=== PATIENT | female | born 1970 | race Caucasian/White ===

== ENCOUNTER 2019-05-02 09:35 | Outpatient (REF) | payer MEDICARE, BC, SELFPAY ==
[2019-05-02 22:46] LABS: ALT 15 U/L (14-59); AST 9 U/L (15-37); Albumin 3.6 g/dL (3.4-5.0); Alkaline Phosphatase 49 U/L (46-116); Anion Gap 7.9 mmol/L (3-11); BUN 17 mg/dL (7-18); Bilirubin, Total 0.6 mg/dL (0.2-1.0); CO2 29.1 mmol/L (21.0-32.0); CREATININE 0.88 mg/dL (0.55-1.02); Calcium 8.6 mg/dL (8.5-10.1); Calculated LDL 90 mg/dL; Chloride 104 mmol/L (98-107); Cholesterol 165 mg/dL (50-200); Glucose 85 mg/dL (70-100); HDL Cholesterol 52 mg/dL (40-60); Potassium 3.7 mmol/L (3.5-5.1); Sodium 141 mmol/L (136-145); TSH 3.65 uIU/mL (0.36-3.74); Triglyceride 118 mg/dL (30-150)
[2019-05-02 22:52] LABS: Vitamin D 25 Total 44.8 ng/ml (30-100)
== END 2019-05-02 09:55 ==
LOC: NCHCN 09:35
PROVIDERS: Visit Provider Physician Assistant Medical
DX: E55.9 Vitamin D deficiency, unspecified (principal); E78.5 Hyperlipidemia, unspecified; R53.83 Other fatigue; E03.9 Hypothyroidism, unspecified
CPT/HCPCS: 80053; 80061; 82306; 84443

== ENCOUNTER 2020-06-06 14:21 | Outpatient (REF) | payer MEDICARE, BC, SELFPAY ==
[2020-06-06 20:50] LABS: Abs Immature Grans 0.03 10^3/uL (0.0-0.06); Absolute Basophil Count 0.05 10^3/uL (0.0-0.2); Absolute Eosinophil Count 0.36 10^3/uL (0.0-0.7); Absolute Lymphocyte Count 2.57 10^3/uL (1.2-3.4); Absolute Neutrophil Count 5.11 10^3/uL (1.2-6.7); Basophils % 0.6; Eosinophils % 4.1; HCT 40.4 % (36.0-46.0); HGB 13.3 g/dL (11.2-15.7); Immature Grans % 0.3; Lymphocytes % 29.5; MCHC 32.9 % (32.0-36.0); MCV 97.3 fL (80-95); MPV 10.4 fL (8.0-11.0); Monocytes % 6.9; Neutrophils % 58.6; Nucleated RBC 0 %; Platelet Count 287 10^3/uL (130-400); RBC 4.15 10^6/uL (3.93-5.22); RDW 12.2 % (11.7-14.6); RDW-SD 43.8 fL; WBC 8.72 10^3/uL (4.4-10.8)
[2020-06-06 21:16] LABS: ALT 19 U/L (14-59); AST 15 U/L (15-37); Albumin 3.9 g/dL (3.4-5.0); Alkaline Phosphatase 44 U/L (46-116); Anion Gap 5.8 mmol/L (3-11); BUN 11 mg/dL (7-18); Bilirubin, Total 0.6 mg/dL (0.2-1.0); CO2 28.2 mmol/L (21.0-32.0); CREATININE 0.82 mg/dL (0.55-1.02); Calcium 8.7 mg/dL (8.5-10.1); Calculated LDL 126 mg/dL (<100); Chloride 104 mmol/L (98-107); Cholesterol 208 mg/dL (<200); Glucose 91 mg/dL (74-106); HDL Cholesterol 67 mg/dL (40-60); Potassium 4.4 mmol/L (3.5-5.1); Sodium 138 mmol/L (136-145); TSH 1.98 uIU/mL (0.36-3.74); Total Protein 7.6 g/dL (6.4-8.2); Triglyceride 79 mg/dL (<150)
[2020-06-06 22:32] LABS: Hemoglobin A1C 4.8 % (<5.7)
== END 2020-06-06 14:41 ==
LOC: NCHCN 14:21
PROVIDERS: PCP Physician Assistant Medical; Visit Provider Physician Assistant Medical
DX: E78.5 Hyperlipidemia, unspecified (principal); E03.9 Hypothyroidism, unspecified; R73.03 Prediabetes; R23.8 Other skin changes
CPT/HCPCS: 80053; 80061; 83036; 84443; 85025

== ENCOUNTER 2021-03-29 09:21 | Outpatient (REF) | payer OTHER, MEDICARE, SELFPAY ==
[2021-03-29 15:13] LABS: ALT 14 U/L (14-59); AST 11 U/L (15-37); Albumin 3.5 g/dL (3.4-5.0); Alkaline Phosphatase 46 U/L (46-116); Anion Gap 2.8 mmol/L (3-11); BUN 15 mg/dL (7-18); Bilirubin, Total 0.4 mg/dL (0.2-1.0); CO2 26.2 mmol/L (21.0-32.0); CREATININE 0.8 mg/dL (0.55-1.02); Calcium 8.4 mg/dL (8.5-10.1); Calculated LDL 115 mg/dL (<100); Chloride 107 mmol/L (98-107); Cholesterol 182 mg/dL (<200); Glucose 90 mg/dL (74-106); HDL Cholesterol 51 mg/dL (40-60); Potassium 4.4 mmol/L (3.5-5.1); Sodium 136 mmol/L (136-145); Total Protein 6.9 g/dL (6.4-8.2); Triglyceride 82 mg/dL (<150)
[2021-03-29 15:15] LABS: Hemoglobin A1C 5.4 % (<5.7)
[2021-03-29 16:53] LABS: TSH (W/Ref FT4) 1.65 uIU/mL (0.36-3.74)
== END 2021-03-29 09:22 | disposition home or self-care (01) ==
LOC: NCHCN 09:21
PROVIDERS: PCP Physician Assistant Medical; Visit Provider Physician Assistant Medical
DX: E03.9 Hypothyroidism, unspecified (principal); E78.5 Hyperlipidemia, unspecified; R79.89 Other specified abnormal findings of blood chemistry
CPT/HCPCS: 80053; 80061; 83036; 84443

== ENCOUNTER 2022-05-30 15:43 | Outpatient (REF) | payer OTHER, MEDICARE, SELFPAY ==
[2022-05-30 16:40] LABS: HCT 37.4 % (36.0-46.0); HGB 12.8 g/dL (11.2-15.7); MCH 33.1 pg (27.0-33.0); MCHC 34.2 % (32.0-36.0); MCV 97 fL (80-95); MPV 10.6 fL (8.0-11.0); Platelet Count 259 10^3/uL (130-400); RBC 3.87 10^6/uL (3.93-5.22); RDW 12.5 % (11.7-14.6); RDW-SD 43.3 fL; WBC 6.21 10^3/uL (4.4-10.8)
[2022-05-30 17:16] LABS: ALT 16 U/L (14-59); AST 7 U/L (15-37); Albumin 3.6 g/dL (3.4-5.0); Alkaline Phosphatase 46 U/L (46-116); Anion Gap 5.9 mmol/L (3-11); BUN 12 mg/dL (7-18); Bilirubin, Total 0.5 mg/dL (0.2-1.0); CO2 27.1 mmol/L (21.0-32.0); CREATININE 0.9 mg/dL (0.55-1.02); Calcium 8.4 mg/dL (8.5-10.1); Calculated LDL 128 mg/dL (<100); Chloride 107 mmol/L (98-107); Cholesterol 201 mg/dL (<200); Glucose 90 mg/dL (74-106); HDL Cholesterol 57 mg/dL (40-60); Potassium 3.9 mmol/L (3.5-5.1); Sodium 140 mmol/L (136-145); TSH 3.29 uIU/mL (0.36-3.74); Total Protein 7.4 g/dL (6.4-8.2); Triglyceride 83 mg/dL (<150)
== END 2022-05-30 15:44 | disposition home or self-care (01) ==
LOC: NCHCN 15:43
PROVIDERS: PCP Physician Assistant Medical; Visit Provider Physician Assistant Medical
DX: E03.9 Hypothyroidism, unspecified (principal); E78.5 Hyperlipidemia, unspecified; R73.03 Prediabetes; R23.8 Other skin changes
CPT/HCPCS: 80053; 80061; 85027; 84443

== ENCOUNTER 2022-10-02 11:04 | Emergency (ER) | payer OTHER, MEDICARE, SELFPAY ==
[2022-10-02 11:18] VITALS: BP 167/119; PULSE 114; RESP 21; TEMP 37.1; O2SAT 98
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
[2022-10-02] MEDS: Tetracaine 0.5% 4 ML BTL OP (11:54)
[2022-10-02] MEDS: Albuterol HFA 8 GM 60 PUFF INH IH (11:54)
== END 2022-10-02 12:45 | disposition home or self-care (01) ==
PROVIDERS: Emergency Provider Nurse Practitioner Family; PCP Physician Assistant Medical
DX: T65.893A Toxic effect of other specified substances, assault, initial encounter (principal); L24.5 Irritant contact dermatitis due to other chemical products; R07.1 Chest pain on breathing
CPT/HCPCS: 99283

== ENCOUNTER 2023-05-27 20:29 | Outpatient (REF) | payer OTHER, MEDICARE, SELFPAY ==
[2023-05-27 21:11] LABS: Abs Immature Grans 0.02 10^3/uL (0.0-0.06); Absolute Basophil Count 0.05 10^3/uL (0.0-0.2); Absolute Eosinophil Count 0.25 10^3/uL (0.0-0.7); Absolute Lymphocyte Count 3.24 10^3/uL (1.2-3.4); Absolute Monocyte Count 0.45 10^3/uL (0.1-0.8); Absolute Neutrophil Count 3.75 10^3/uL (1.2-6.7); Basophils % 0.6; Eosinophils % 3.2; HCT 37.2 % (36.0-46.0); HGB 12.6 g/dL (11.2-15.7); Immature Grans % 0.3; Lymphocytes % 41.8; MCH 31.5 pg (27.0-33.0); MCHC 33.9 % (32.0-36.0); MCV 93 fL (80-95); MPV 10.4 fL (8.0-11.0); Monocytes % 5.8; Neutrophils % 48.3; Platelet Count 279 10^3/uL (130-400); RDW 12.4 % (11.7-14.6); RDW-SD 42.2 fL; WBC 7.76 10^3/uL (4.4-10.8)
[2023-05-27 21:38] LABS: ALT 17 U/L (14-59); AST 14 U/L (15-37); Albumin 3.7 g/dL (3.4-5.0); Alkaline Phosphatase 62 U/L (46-116); BUN 17 mg/dL (7-18); Bilirubin, Total 0.3 mg/dL (0.2-1.0); CREATININE 1.1 mg/dL (0.55-1.02); Calculated LDL 124 mg/dL (<100); Chloride 104 mmol/L (98-107); Cholesterol 202 mg/dL (<200); Estimated GFR 60.46 (mL/min/1.73m2); Glucose 94 mg/dL (74-106); HDL Cholesterol 60 mg/dL (40-60); Potassium 4.4 mmol/L (3.5-5.1); Sodium 139 mmol/L (136-145); TSH (W/Ref FT4) 2.17 uIU/mL (0.36-3.74); Total Protein 7.9 g/dL (6.4-8.2); Triglyceride 94 mg/dL (<150)
[2023-05-27 21:47] LABS: Hemoglobin A1C 5.4 % (<5.7)
== END 2023-05-27 20:30 | disposition home or self-care (01) ==
LOC: NCHCN 20:29
PROVIDERS: PCP Physician Assistant Medical; Visit Provider Physician Assistant Medical
DX: E03.9 Hypothyroidism, unspecified (principal); E78.5 Hyperlipidemia, unspecified
CPT/HCPCS: 80053; 80061; 83036; 84443; 85025

== ENCOUNTER 2024-02-03 17:21 | Emergency (ER) | payer OTHER, MEDICARE, SELFPAY ==
--- NOTE | 2024-02-03 17:15 | RT.EKG_ITS ---
APPROVED REPORT Exam: Resting ECG Reason for Exam: possible stroke Patient Location: E HR:78 bpm ECG Measurements Heart Rate 78 AXIS DC 179 P 35 QRSd 80 QRS -2 QT 375 T 27 QTc 427 Conclusion Sinus rhythm...normal P axis, V-rate 60- 99 sinus rhtyhm, nnormal intervals, non ischemic
[2024-02-03 17:24] VITALS: BP 171/103; PULSE 85; RESP 16; O2SAT 98
--- NOTE | 2024-02-03 17:32 | DI.CT_ITS ---
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 TECHNIQUE: Imaging Protocol: Axial CT angiography was performed with multi-slice acquisition and mu lti-planar and/or 3D reconstructions. CONTRAST MATERIAL: Intravenous: Omnipaque 350 Contrast volume:structured data in ml COMPARISON: No exams were available for comparison FINDINGS: CTA Neck W: Aortic arch anatomy: The aortic arch anatomy is conventional and there is no significant stenosis at the origin of the great vessels off of the aortic arch. No intimal flap evident. Anterior circulation: Both common carotid arteries ascend with normal luminal diameters. At the level the carotid bulbs and proximal internal carotid arteries there is minimal plaque without hemodynamically significant stenosis evident. Above this level the internal carotid arteries are patent in the upper neck and skull base-carotid ca nals. Posterior circulation: Both vertebral arteries originate in conventional fashion off of the subclavian arteries and there is no obvious stenosis at the origin of the vertebral arteries. Both vertebral arteries exhibit normal luminal diameters within the foramen transversarium. Both vertebral arteries contribute to the formation of the basilar artery at the skull base. CTA Brain W: Anterior circulation: Both internal carotid arteries are patent in the skull base-carotid canals as well as within the cave rnous sinuses. The supraclinoid aspects of the ICAs are patent. Both A1 segments are patent as are the anterior cer ebral arteries and there is no evidence of aneurysm at the level of the anterior communicating artery . Both middle cerebral arteries are patent with no evidence of significant stenosis nor intraluminal th rombus. There also no aneurysms of these vessels. Posterior circulation: The basilar artery ascends in the midline. Distally it gives off patent bilateral superior cerebella r arteries. Above this level the basilar artery terminates as patent bilateral posterior cerebral arteries. There is no evidence of aneurysm at the tip of the basilar artery nor elsewhere in the [id number] is. CT BRAIN: There is no evidence of intracranial hemorrhage, mass effect, or shift of midline structures. There are no extra-axial fluid collections. Ventricles are not enlarged or shifted. There are no ring enh ancing lesions in the brain and no abnormal meningeal enhancement. IMPRESSION: 1. Patent carotid arteries in the neck. No hemodynamically significant stenosis. 2. Patent vertebral arteries. 3. Patent intracranial arteries. 4. No ring enhancing lesions in the brain and no abnormal meningeal enhancement. No acute intracrani al findings. Report called by myself to ER physician 02/03/2024 6:35 p.m. RADIATION DOSE DELIVERED: 1,809.15mGy.cm Total DLP DATA REPOSITORY: All CT scans at this facility are submitted to the National Radiology Data Registry (NRDR) Dose Index Registry (DIR) with the [employer] ([employer]). RADIATION OPTIMIZATION: All CT scans at this facility use at least one of these dose optimization te chniques: automated exposure control; mA and/or kV adjustment per patient size (includes targeted exa ms where dose is matched to clinical indication); or iterative reconstruction.
--- NOTE | 2024-02-03 17:34 | ED.GENADUL_ITS ---
Discharge Plan Disposition Patient Disposition: Home Condition: Stable Discharge Details Clinical Impression: Clements's palsy Primary Care Provider: Seamus Spencer ED Provider: Jung Sosa Home Meds and New Rx's Prescriptions: New prednisone 20 mg tablet 60 mg PO DAILY 7 Days Qty: 21 0RF valacyclovir 1 gram tablet 1,000 mg PO TID 7 Days Qty: 21 0RF No Action lamotrigine 150 MG tablet 150 mg PO DAILY levothyroxine 25 MCG tablet 25 mcg PO DAILY Patient Comments: unsure of dose baclofen 10 MG tablet 10 mg PO BID PRN pravastatin 20 MG tablet 20 mg PO DAILY fluoxetine [Prozac] 20 MG capsule 40 mg PO HS zolpidem [Ambien] 5 mg Tablet 5 mg PO PRN PRN omeprazole 20 mg Tablet,Delayed Release (Dr/Ec) 20 mg PO DAILY lamotrigine 25 mg Tablet Extended Release 24hr 25 mg PO DAILY levothyroxine 75 mcg Capsule 75 mcg PO DAILY Discharge Instructions Instructions: Clements's palsy HPI General Date/Time Provider Initiated Documentation: 02/03/24 17:32 . HPI Narrative: 53-year-old female presents with right facial paralysis that she noted when she woke up around 11:30 AM this morning. Denies change in speech denies weakness numbness or other neurologic symptoms. Patient Dors is right ear and right eye discomfort and mild headache. Related Data Home Medications Medication Instructions Recorded Confirmed baclofen 10 mg tablet 10 mg PO BID PRN 09/18/13 02/03/24 fluoxetine 20 mg capsule (Prozac) 40 mg PO HS 09/18/13 02/03/24 lamotrigine 150 mg tablet 150 mg PO DAILY 09/18/13 02/03/24 levothyroxine 25 mcg tablet 25 mcg PO DAILY 09/18/13 09/18/13 pravastatin 20 mg tablet 20 mg PO DAILY 09/18/13 02/03/24 lamotrigine 25 mg tablet,extended 25 mg PO DAILY 10/02/22 02/03/24 release 24 hr levothyroxine 75 mcg capsule 75 mcg PO DAILY 10/02/22 02/03/24 omeprazole 20 mg tablet,delayed 20 mg PO DAILY 10/02/22 02/03/24 release zolpidem 5 mg tablet (Ambien) 5 mg PO PRN PRN 10/02/22 02/03/24 prednisone 20 mg tablet 60 mg (3 x 20 mg) PO DAILY 7 days 02/03/24 #21 tabs valacyclovir 1 gram tablet 1,000 mg PO TID 7 days #21 tabs 02/03/24 Previous Rx's Medication Instructions Recorded prednisone 20 mg tablet 60 mg (3 x 20 mg) PO DAILY 7 days 02/03/24 #21 tabs valacyclovir 1 gram tablet 1,000 mg PO TID 7 days #21 tabs 02/03/24 Allergies Allergy/AdvReac Type Severity Reaction Status Date / Time duloxetine HCl Allergy Intermediate Psychosis Unverified 02/03/24 17:30 [From Cymbalta] ibuprofen Allergy Intermediate Anaphylaxsi Unverified 02/03/24 17:30 s NSAIDS (Non-Steroidal Allergy Intermediate Anaphylaxsi Unverified 02/03/24 17:30 Anti-Inflamma s pregabalin [From Lyrica] Allergy Intermediate Psychosis Unverified 02/03/24 17:30 tetanus and diphtheria Allergy Intermediate Swelling/Ed Unverified 02/03/24 17:30 toxoids reynaldo [Tetanus&Diphtheria Toxoid] codeine AdvReac Intermediate Nausea Unverified 02/03/24 17:30 walnut Allergy Intermediate Anaphylaxsi Uncoded 02/03/24 17:30 s General Stated Complaint: CVA/TIA AMELIE: 3 Review of Systems Narrative: Review of Systems Constitutional: negative Eyes: Eye discomfort ENT: Right earache, eye discomfort Cardiovascular: negative Respiratory: negative Gastrointestinal: negative : negative Musculoskeletal: negative Skin: negative Neurologic: Right facial paralysis, headache Psych: negative Exam Narrative Exam Narrative: Physical Examination General: alert, awake, cooperative, resting comfortably, no acute distress HEENT: normocephalic, atraumatic; slight tearing of right eye, right TM clear Neck: supple, trachea midline; full ROM Chest: normal to inspection Respiratory: normal respiratory effort, speaking in full sentences, clear to auscultation, no wheezing, rales or rhonchi Cardiac: regular rate, regular rhythm, S1S2 intact, no murmurs rubs or gallops GI: abdomen soft, non-tender, non-distended; no palpable mass or hepatosplenomegaly Skin: no lesions, rashes or trauma appreciated Neuro: Alert and oriented x 3, right facial palsy involving brow eye nasolabial fold mouth and lower face, remaining cranial nerves intact 5/5 strength upper and lower extremities bilaterally sensation intact, no ataxia Psych: Appropriate mood and affect Course Vital Signs Vital signs: Vital Signs Pulse 85 02/03/24 17:24 Respiratory Rate 16 02/03/24 17:24 Blood Pressure 171/103 H 02/03/24 17:24 Pulse Oximetry 98 02/03/24 17:24 Pulse 85 02/03/24 17:24 Respiratory Rate 16 02/03/24 17:24 Blood Pressure 171/103 H 02/03/24 17:24 Blood Pressure Position Sitting 02/03/24 17:24 Pulse Oximetry 98 02/03/24 17:24 Oxygen Delivery Method Room Air 02/03/24 17:24 Oxygen Flow Rate 0 02/03/24 17:24 Pain Level 5 02/03/24 17:24 Medical Decision Making 53-year-old female presents with right facial palsy that began around 11:30 AM when she woke up, also endorses some irritation to right eye and right ear discomfort, patient does have palsy of forehead periorbital muscles nasolabial fold and mouth on the right side, remaining cranial nerves intact, 5 out of 5 strength upper and lower extremities bilaterally sensation intact no ataxia, TMs clear bilaterally; patient 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 For this reason we will pursue CTA head and neck basic labs, EKG, will also perform fluorescein stain of right eye to assess for any herpetic lesions 19: 08 no lesions to TM or high on fluorescein stain, CT CTA head neck negative for stroke. Will continue plan of treating Clements's palsy. Will be given instructions on how to patch eye at nighttime and patient has LiquiTears at home Quality:SDOH Health Related Social Needs: No Data to Display PFSH All Active Problems (Updated 02/03/24 @ 19:09 by Jung Sosa MD) Clements's palsy (Acute) Social History (System 05/26/23 @ 09:11 by Iris Avina) Smoking/Tobacco Use Status: Never Smoking risk assessment performed?: Yes Alcohol Intake: current Alcohol Intake frequency: holidays/special occasions only Drug use: Never Substance use type: does not use Housing: apartment Do you feel safe at home: Yes Do you feel safe in your relationship?: Yes
[2024-02-03] MEDS: predniSONE 20 MG TAB 60 MG PO (17:44)
[2024-02-03] MEDS: valACYclovir 500 MG TAB 1000 MG PO (17:44)
[2024-02-03 17:46] VITALS: BP 146/100; PULSE 76
[2024-02-03 17:47] VITALS: RESP 18
[2024-02-03 17:47] LABS: Abs Immature Grans 0.01 10^3/uL (0.0-0.06); Absolute Basophil Count 0.05 10^3/uL (0.0-0.2); Absolute Eosinophil Count 0.25 10^3/uL (0.0-0.7); Absolute Lymphocyte Count 2.97 10^3/uL (1.2-3.4); Absolute Monocyte Count 0.46 10^3/uL (0.1-0.8); Absolute Neutrophil Count 2.93 10^3/uL (1.2-6.7); Basophils % 0.7 %; Eosinophils % 3.7 %; HCT 42.9 % (36.0-46.0); HGB 14.4 g/dL (11.2-15.7); Immature Grans % 0.1 %; Lymphocytes % 44.5 %; MCH 32.3 pg (27.0-33.0); MCHC 33.6 % (32.0-36.0); MCV 96 fL (80-95); MPV 10.3 fL (8.0-11.0); Monocytes % 6.9 %; Neutrophils % 44.1 %; Platelet Count 281 10^3/uL (130-400); RBC 4.46 10^6/uL (3.93-5.22); RDW 12.1 % (11.7-14.6); RDW-SD 42.8 fL; WBC 6.67 10^3/uL (4.4-10.8)
[2024-02-03 18:00] LABS: ALT 23 U/L (14-59); AST 12 U/L (15-37); Albumin 4.1 g/dL (3.4-5.0); Alkaline Phosphatase 62 U/L (46-116); Anion Gap 10.3 mmol/L (3-11); BUN 12 mg/dL (7-18); Bilirubin, Total 0.59 mg/dL (0.2-1.0); CO2 28.7 mmol/L (21.0-32.0); Calcium 8.9 mg/dL (8.5-10.1); Chloride 106 mmol/L (98-107); Estimated GFR 67.78 (mL/min/1.73m2); Glucose 95 mg/dL (74-106); Potassium 3.7 mmol/L (3.5-5.1); Sodium 145 mmol/L (136-145)
[2024-02-03] MEDS: Normal Saline - Diluent 50 ML VIAL IJ (18:25)
[2024-02-03] MEDS: Omnipaque 350 MG/ML 100 ML BTL IJ (18:26)
== END 2024-02-03 19:19 | disposition home or self-care (01) ==
PROVIDERS: Emergency Provider Emergency Medicine; PCP Physician Assistant Medical
DX: G51.0 Bell's palsy (principal)
CPT/HCPCS: 70496; 70498; 80053; 93005; 99285; 85025; 93010; 99283; J3490; J7512

== ENCOUNTER 2024-02-08 18:59 | Emergency (ER) | payer OTHER, MEDICARE, SELFPAY ==
[2024-02-08] VITALS (25 sets, daily range): BP systolic 158–190; BP diastolic 90–119; PULSE 46–91; RESP 7–18; TEMP 37.2; O2SAT 96–99
--- NOTE | 2024-02-08 20:30 | RT.EKG_ITS ---
APPROVED REPORT Exam: Resting ECG Reason for Exam: Palpitations Patient Location: E HR:52 bpm ECG Measurements Heart Rate 52 AXIS MA 175 P 40 QRSd 90 QRS 5 QT 430 T 6 QTc 401 Conclusion Sinus bradycardia...rate< 60 Narrow complex sinus bradycardia rate of 52. Normal axis. Intervals within normal limits. No ST se gment abnormalities. T wave inversion in lead III. Compared to prior dated earlier this year T wave inversion in lead III slightly more pronounced. No ST segment abnormalities. No acute injury tl serna.
[2024-02-08 20:58] LABS: Abs Immature Grans 0.07 10^3/uL (0.0-0.06); Absolute Basophil Count 0.02 10^3/uL (0.0-0.2); Absolute Monocyte Count 0.43 10^3/uL (0.1-0.8); Absolute Neutrophil Count 8.49 10^3/uL (1.2-6.7); Basophils % 0.2 %; HCT 40.9 % (36.0-46.0); HGB 13.6 g/dL (11.2-15.7); Immature Grans % 0.7 %; Lymphocytes % 13.4 %; MCH 32.2 pg (27.0-33.0); MCHC 33.3 % (32.0-36.0); MCV 97 fL (80-95); MPV 10.4 fL (8.0-11.0); Monocytes % 4.1 %; Neutrophils % 81.6 %; Platelet Count 277 10^3/uL (130-400); RBC 4.23 10^6/uL (3.93-5.22); RDW 12.2 % (11.7-14.6); RDW-SD 42.9 fL; WBC 10.41 10^3/uL (4.4-10.8)
[2024-02-08] MEDS: Normal Saline 1,000 ML 1000 ML IV (21:05)
[2024-02-08] MEDS: LORazepam 2 MG/ML VIAL 0.5 MG IVP (21:05)
[2024-02-08 21:28] LABS: ALT 19 U/L (14-59); AST 11 U/L (15-37); Alkaline Phosphatase 61 U/L (46-116); Anion Gap 9.2 mmol/L (3-11); BUN 18 mg/dL (7-18); Bilirubin, Total 0.58 mg/dL (0.2-1.0); CO2 29.8 mmol/L (21.0-32.0); CREATININE 0.9 mg/dL (0.55-1.02); Calcium 8.5 mg/dL (8.5-10.1); Chloride 105 mmol/L (98-107); Estimated GFR 76.92 (mL/min/1.73m2); Glucose 108 mg/dL (74-106); Magnesium 2.1 mg/dL (1.8-2.4); Potassium 4.1 mmol/L (3.5-5.1); Sodium 144 mmol/L (136-145); Troponin I < 50 ng/L (< or =60)
[2024-02-08 22:34] LABS: Troponin I < 50 ng/L (< or =60)
[2024-02-08 22:37] LABS: COVID-19 PCR Negative (Negative); Influenza A PCR Negative (Negative); Influenza B PCR Negative (Negative); RSV PCR Negative (Negative)
[2024-02-08 22:38] LABS: Source Nasopharynx
--- NOTE | 2024-02-08 22:58 | W.ED.GENAD ---
Discharge Plan Disposition Patient Disposition: Home Discharge Details Clinical Impression: Palpitation, Clements's palsy, Medication side effect Primary Care Provider: Seamus Spencer ED Provider: Robin Terrell Home Meds and New Rx's Prescriptions: New doxycycline hyclate 100 mg capsule 100 mg PO BID Qty: 28 0RF Continued lamotrigine 150 MG tablet 150 mg PO DAILY levothyroxine 25 MCG tablet 25 mcg PO DAILY Patient Comments: unsure of dose baclofen 10 MG tablet 10 mg PO BID PRN pravastatin 20 MG tablet 20 mg PO DAILY fluoxetine [Prozac] 20 MG capsule 40 mg PO HS zolpidem [Ambien] 5 mg Tablet 5 mg PO PRN PRN omeprazole 20 mg Tablet,Delayed Release (Dr/Ec) 20 mg PO DAILY lamotrigine 25 mg Tablet Extended Release 24hr 25 mg PO DAILY levothyroxine 75 mcg Capsule 75 mcg PO DAILY valacyclovir 1 gram tablet 1,000 mg PO TID 7 Days Qty: 21 0RF Discontinued prednisone 20 mg tablet 60 mg PO DAILY 7 Days Qty: 21 0RF Discharge Instructions Instructions: Adverse Drug Reactions, Adult ED, Palpitations ED Additional Instructions: At this time your workup is negative for any emergent findings. There is a chance that the steroid you have been on are causing your palpitations and you did not feel well. Please discontinue these. Also because you have not seen much improvement I am also adding doxycycline for 2 weeks in case this is possible tickborne Clements's palsy. It is recommended that you follow-up with your primary care provider in the next 3 to 5 days but feel free to return the emergency department for any new or significant worsening of your symptoms. Referrals: Seamus Spencer PA [Primary Care Provider] - 3 days HPI General Mode of arrival: ambulatory. Date/Time Provider Initiated Documentation: 02/08/24 19:20. Limitations to Documentation: no limitations. Information obtained by: patient. History of Present Illness 53 year old F presents to the emergency department with the chief complaint of Palpitations, anxiety, described as moderate and severe, Patient started experiencing this hour(s) (1) and it has been constant. No relieving factors improve symptom(s), Eating worsens symptoms . Patient notes no other symptoms.. Patient did receive the following treatments prior to arrival, other (Nightly psychiatric meds) Related Data Home Medications Medication Instructions Recorded Confirmed baclofen 10 mg tablet 10 mg PO BID PRN 09/18/13 02/03/24 fluoxetine 20 mg capsule (Prozac) 40 mg PO HS 09/18/13 02/03/24 lamotrigine 150 mg tablet 150 mg PO DAILY 09/18/13 02/03/24 levothyroxine 25 mcg tablet 25 mcg PO DAILY 09/18/13 09/18/13 pravastatin 20 mg tablet 20 mg PO DAILY 09/18/13 02/03/24 lamotrigine 25 mg tablet,extended 25 mg PO DAILY 10/02/22 02/03/24 release 24 hr levothyroxine 75 mcg capsule 75 mcg PO DAILY 10/02/22 02/03/24 omeprazole 20 mg tablet,delayed 20 mg PO DAILY 10/02/22 02/03/24 release zolpidem 5 mg tablet (Ambien) 5 mg PO PRN PRN 10/02/22 02/03/24 valacyclovir 1 gram tablet 1,000 mg PO TID 7 days #21 tabs 02/03/24 doxycycline hyclate 100 mg capsule 100 mg PO BID #28 caps 02/08/24 Previous Rx's Medication Instructions Recorded valacyclovir 1 gram tablet 1,000 mg PO TID 7 days #21 tabs 02/03/24 doxycycline hyclate 100 mg capsule 100 mg PO BID #28 caps 02/08/24 Allergies Allergy/AdvReac Type Severity Reaction Status Date / Time duloxetine HCl Allergy Intermediate Psychosis Unverified 02/03/24 17:30 [From Cymbalta] ibuprofen Allergy Intermediate Anaphylaxsi Unverified 02/03/24 17:30 s NSAIDS (Non-Steroidal Allergy Intermediate Anaphylaxsi Unverified 02/03/24 17:30 Anti-Inflamma s pregabalin [From Lyrica] Allergy Intermediate Psychosis Unverified 02/03/24 17:30 tetanus and diphtheria Allergy Intermediate Swelling/Ed Unverified 02/03/24 17:30 toxoids reynaldo [Tetanus&Diphtheria Toxoid] codeine AdvReac Intermediate Nausea Unverified 02/03/24 17:30 walnut Allergy Intermediate Anaphylaxsi Uncoded 02/03/24 17:30 s General Stated Complaint: GenMedical AMELIE: 3 Review of Systems Constitutional Constitutional: Denies chills, Denies fever(s) and Denies headache(s) ENT Ears, Nose, Mouth, and Throat: Reports dizziness and Denies headache(s) Cardiovascular Cardiovascular: Reports as per HPI, Denies chest pain, Reports irregular heart rhythm and Denies dyspnea Respiratory Respiratory: Denies dyspnea Gastrointestinal Gastrointestinal: Denies abdominal pain Musculoskeletal Musculoskeletal: Reports tingling Neurologic Neurologic: Reports dizziness, Denies headache(s) and Reports tingling Psychiatric Psychiatric: Reports anxiety Exam Const General: cooperative, no acute distress, not diaphoretic and not ill appearing Nutritional Appearance: average body habitus Orientation: alert, awake and oriented x3 Limitations: mental status not altered Neck Neck: normal visual inspection, full ROM, trachea midline and supple Resp Effort & Inspection: normal respiratory effort and able to speak in complete sentences Auscultation: clear to auscultation bilaterally Cardio Jugular venous pressure: no JVD Palpation: normal PMI Rate: regular rate Rhythm: regular rhythm Heart Sounds: S1 normal, S2 normal, no click, no gallops, no murmurs and no rubs Bruits: no abdominal aortic bruits and no carotid bruits Pulses: radial pulses present bilaterally 2+ Skin General skin exam: no rashes or lesions noted Neuro General: patient alert, patient awake, patient oriented x3, gait normal, tone normal, moves all extremities, meningeal signs present, no focal motor deficits, not confused and not obtunded Cranial Nerves: individual cranial nerve findings VII: normal (Right-sided facial droop) Course Vital Signs Vital signs: Vital Signs Temperature 37.2 C 02/08/24 19:16 Pulse 91 H 02/08/24 19:16 Respiratory Rate 18 02/08/24 19:16 Blood Pressure 176/114 H 02/08/24 19:16 Pulse Oximetry 97 02/08/24 19:16 Temperature 37.2 C 02/08/24 19:16 Temperature Source Tympanic 02/08/24 19:16 Pulse 91 H 02/08/24 19:16 Respiratory Rate 18 02/08/24 19:16 Respiratory Effort Normal 02/08/24 19:48 Blood Pressure 176/114 H 02/08/24 19:16 Blood Pressure Position Sitting 02/08/24 19:16 Pulse Oximetry 97 02/08/24 19:16 Oxygen Delivery Method Room Air 02/08/24 19:16 Oxygen Flow Rate 0 02/08/24 19:16 Pain Level 9 02/08/24 19:16 Lab/Test Results Lab/Test Results: Laboratory Tests Range/Units 02/08/24 02/08/24 02/08/24 20:31 20:55 21:55 WBC (4.4-10.8) 10^3/uL 10.41 RBC (3.93-5.22) 10^6/uL 4.23 Hgb (11.2-15.7) g/dL 13.6 Hct (36.0-46.0) % 40.9 MCV (80-95) fL 97 H MCH (27.0-33.0) pg 32.2 MCHC (32.0-36.0) % 33.3 RDW (11.7-14.6) % 12.2 Plt Count (130-400) 10^3/uL 277 MPV (8.0-11.0) fL 10.4 Immature Gran % % 0.7 Neutrophils % % 81.6 Lymphocytes % % 13.4 Monocytes % % 4.1 Eosinophils % % 0.0 Basophils % % 0.2 Nucleated RBC % (0.0-0.3) % 0.0 Absolute Neutrophils (1.2-6.7) 10^3/uL 8.49 H Absolute Lymphocytes (1.2-3.4) 10^3/uL 1.40 Absolute Monocytes (0.1-0.8) 10^3/uL 0.43 Absolute Eosinophils (0.0-0.7) 10^3/uL 0.00 Absolute Basophils (0.0-0.2) 10^3/uL 0.02 Sodium (136-145) mmol/L 144 Potassium (3.5-5.1) mmol/L 4.1 Chloride (98-107) mmol/L 105 Carbon Dioxide (21.0-32.0) mmol/L 29.8 Anion Gap (3-11) mmol/L 9.2 BUN (7-18) mg/dL 18 Creatinine (0.55-1.02) mg/dL 0.9 Est GFR (CKD-EPI 2020) (mL/min/1.73m2) 76.92 Glucose (74-106) mg/dL 108 H Calcium (8.5-10.1) mg/dL 8.5 Magnesium (1.8-2.4) mg/dL 2.1 Total Bilirubin (0.2-1.0) mg/dL 0.58 AST (15-37) U/L 11 L ALT (14-59) U/L 19 Alkaline Phosphatase (46-116) U/L 61 Troponin I (< or =60) ng/L < 50 Total Protein (6.4-8.2) g/dL 8.0 Albumin (3.4-5.0) g/dL 4.0 TSH Cancelled 0.90 COVID-19 Source Nasopharynx SARS-CoV-2 (PCR) (Negative) Negative Influenza Type A (PCR) (Negative) Negative Influenza Type B (PCR) (Negative) Negative RSV (PCR) (Negative) Negative Range/Units 02/08/24 22:09 WBC (4.4-10.8) 10^3/uL RBC (3.93-5.22) 10^6/uL Hgb (11.2-15.7) g/dL Hct (36.0-46.0) % MCV (80-95) fL MCH (27.0-33.0) pg MCHC (32.0-36.0) % RDW (11.7-14.6) % Plt Count (130-400) 10^3/uL MPV (8.0-11.0) fL Immature Gran % % Neutrophils % % Lymphocytes % % Monocytes % % Eosinophils % % Basophils % % Nucleated RBC % (0.0-0.3) % Absolute Neutrophils (1.2-6.7) 10^3/uL Absolute Lymphocytes (1.2-3.4) 10^3/uL Absolute Monocytes (0.1-0.8) 10^3/uL Absolute Eosinophils (0.0-0.7) 10^3/uL Absolute Basophils (0.0-0.2) 10^3/uL Sodium (136-145) mmol/L Potassium (3.5-5.1) mmol/L Chloride (98-107) mmol/L Carbon Dioxide (21.0-32.0) mmol/L Anion Gap (3-11) mmol/L BUN (7-18) mg/dL Creatinine (0.55-1.02) mg/dL Est GFR (CKD-EPI 2020) (mL/min/1.73m2) Glucose (74-106) mg/dL Calcium (8.5-10.1) mg/dL Magnesium (1.8-2.4) mg/dL Total Bilirubin (0.2-1.0) mg/dL AST (15-37) U/L ALT (14-59) U/L Alkaline Phosphatase (46-116) U/L Troponin I (< or =60) ng/L < 50 Total Protein (6.4-8.2) g/dL Albumin (3.4-5.0) g/dL TSH COVID-19 Source SARS-CoV-2 (PCR) (Negative) Influenza Type A (PCR) (Negative) Influenza Type B (PCR) (Negative) RSV (PCR) (Negative) Medical Decision Making Patient presenting to the emergency department for chief complaint of palpitations and not feeling right. Patient states approximately 1 week ago she was diagnosed with Clements's palsy and placed up on medications. She states that she has not been improving and today after having a slight snack started feeling palpitations and heart fluttering, increased anxiety with rapid breathing and some tingling. Patient does state history of anxiety and depression but that this felt different causing her to come in. Patient denies any rash headache or other symptoms. Physical exam shows findings consistent with right-sided facial Clements's palsy otherwise exam is noncontributory. Both in reviewing the monitor and auscultation did not appreciate any palpitations or irregularities with heart rate or beat even when patient stated she was feeling no sensations. Patient did seem to be slightly shaky when she attempted to move but at rest had no tremor or other movement abnormalities noted. Will check patient's labs including EKG and troponin. Do suspect potential side effects from steroids so we will have patient stop steroid therapy. Please see physician interpretation for full interpretation of EKG but upon my review patient is in sinus rhythm, bradycardic, no criteria of irregular rhythm or STEMI criteria that was met. Will continue to monitor. Reviewed patient's labs and CBC is overall unremarkable, CMP also nondiagnostic, initial troponin is negative/nondetected, TSH is within normal range, patient negative for COVID flu RSV. Patient reassessed and states slight improvement but still having some symptoms. Will give small dose of Ativan and will recheck troponin. Troponin reassessed and is still negative nondetected, patient has again slight improvement of tingling and other sensation but still having sensation of palpitations again that are not observed otherwise. Given local prevalence of Lyme disease or tickborne illness will have patient start doxycycline to see if this helps. Patient placed upon follow-up to follow-up with primary care provider for reassessment preferably in the next couple days and patient otherwise instructed to return for new or worsening symptoms. Will again have patient stop steroids given that they have not seem to help and could be potential cause of her symptoms also exacerbating her previously diagnosed anxiety. After discussion of diagnosis and plan of care patient has no further needs, questions, or concerns and states clear understanding to return to the emergency department for any worsening symptoms. This documentation was generated using [employer] dictation system, please disregard any oddities of phrase or misspellings. Lab Data Lab results reviewed: Yes I reviewed the patient's lab results. Quality:SDOH Health Related Social Needs: No Data to Display PFSH All Active Problems Medication side effect (Acute) Palpitation (Acute) Clements's palsy (Acute) Social History Smoking/Tobacco Use Status: Never Smoking risk assessment performed?: Yes Alcohol Intake: current Alcohol Intake frequency: holidays/special occasions only Drug use: Never Substance use type: does not use Housing: apartment Do you feel safe at home: Yes Do you feel safe in your relationship?: Yes
[2024-02-08] MEDS: Doxycycline Hyclate 100 MG CAP PO (23:07)
== END 2024-02-08 23:15 | disposition home or self-care (01) ==
PROVIDERS: Emergency Provider Nurse Practitioner Family; PCP Physician Assistant Medical
DX: R00.2 Palpitations (principal); G51.0 Bell's palsy; R53.83 Other fatigue
CPT/HCPCS: 36415; 80053; 87637; 93005; 96361; 96374; 99284; 83735; 84443; 84484; 85025; 93010; J2060

== ENCOUNTER 2024-11-29 13:08 | Outpatient (REF) | payer OTHER, MEDICARE, SELFPAY ==
[2024-11-29 17:05] LABS: ALT 33 U/L (14-59); AST 37 U/L (15-37); Albumin 3.6 g/dL (3.4-5.0); Alkaline Phosphatase 91 U/L (46-116); Anion Gap 10.2 mmol/L (3-11); BUN 14 mg/dL (7-18); Bilirubin, Total 0.6 mg/dL (0.2-1.0); CO2 23.8 mmol/L (21.0-32.0); CREATININE 1.1 mg/dL (0.55-1.02); Calculated LDL 118 mg/dL (<100); Chloride 109 mmol/L (98-107); Cholesterol 197 mg/dL (<200); Estimated GFR 60.08 (mL/min/1.73m2); Glucose 91 mg/dL (74-106); HDL Cholesterol 56 mg/dL (>or=50); Potassium 4.3 mmol/L (3.5-5.1); Sodium 143 mmol/L (136-145); TSH (W/Ref FT4) 7.68 uIU/mL (0.36-3.74); Total Protein 7.5 g/dL (6.4-8.2); Triglyceride 119 mg/dL (<150)
[2024-11-29 17:45] LABS: FREE T4 0.94 ng/dL (0.76-1.46)
== END 2024-11-29 13:09 | disposition home or self-care (01) ==
LOC: NCHCN 13:08
PROVIDERS: PCP Physician Assistant Medical; Visit Provider Physician Assistant Medical
DX: E78.5 Hyperlipidemia, unspecified (principal); E03.9 Hypothyroidism, unspecified
CPT/HCPCS: 80053; 80061; 84439; 84443

== ENCOUNTER 2025-01-11 15:20 | Outpatient (CLI) | payer OTHER, MEDICARE, SELFPAY ==
[2025-01-11 16:17] LABS: TSH (W/Ref FT4) 1.21 uIU/mL (0.36-3.74)
== END 2025-01-11 15:21 | disposition home or self-care (01) ==
LOC: LBO 15:21
PROVIDERS: PCP Physician Assistant Medical; Visit Provider Physician Assistant Medical
DX: E03.9 Hypothyroidism, unspecified (principal)
CPT/HCPCS: 36415; 84443

== ENCOUNTER 2025-03-13 14:07 | Emergency (ER) | payer OTHER, MEDICARE, SELFPAY ==
[2025-03-13 14:12] VITALS: BP 164/128; PULSE 76; RESP 16; TEMP 36.7; O2SAT 98
--- NOTE | 2025-03-13 14:15 | DI.RAD_ITS ---
Exam(s) XR WRIST RT COMPL NAVICULAR EXAM: XR WRIST RT COMPL NAVICULAR CLINICAL HISTORY: R wrist pain. TECHNIQUE: 2D digital imaging was performed. Four views. COMPARISON: No exams were available for comparison FINDINGS: BONES: No acute fracture is present. No bony destructive lesion is seen. JOINTS: The carpal bones are normally aligned. Mild degenerative changes at the 1st carpometacarpal SOFT TISSUE: Normal. IMPRESSION: No acute abnormality. DATA REPOSITORY: RADIATION DOSE DELIVERED:
--- NOTE | 2025-03-13 14:21 | W.ED.GENAD ---
Discharge Plan Disposition Patient Disposition: Home Condition: Stable Discharge Details Clinical Impression: Thumb tendonitis Primary Care Provider: Seamus Spencer ED Provider: Fabian Liang Home Meds and New Rx's Prescriptions: Continued lamotrigine 150 MG tablet 150 mg PO DAILY levothyroxine 25 MCG tablet 25 mcg PO DAILY baclofen 10 MG tablet 10 mg PO BID PRN pravastatin 20 MG tablet 20 mg PO DAILY fluoxetine [Prozac] 20 MG capsule 40 mg PO HS doxycycline hyclate 100 mg capsule 100 mg PO BID Qty: 28 0RF Patient Comments: Prior to dental work zolpidem [Ambien] 5 mg Tablet 6.25 mg PO QHS omeprazole 20 mg Tablet,Delayed Release (Dr/Ec) 20 mg PO DAILY levothyroxine 75 mcg Capsule 75 mcg PO DAILY Patient Comments: Pt unsure if taking 25 mcg, 75 mcg or both 03/13/25 hydroxyzine HCl 1 tab PO BID Discharge Instructions Instructions: Tendinopathy Additional Instructions: You were seen in the emergency department for the tendinitis of your right thumb, we have placed in a Velcro thumb spica splint, wear this 09/03 for 4 to 5 days to see if this improves your symptoms, you may need to continue wearing it at night to improve your tendinitis. Please use therapeutic dosing of Tylenol (acetamenophen) & Advil (ibuprofen) in an alternating fashion as follows: Take Tylenol as needed for pain, perform ice and heat therapy to the area, follow-up with orthopedics for any failure to improve past 2 weeks. Referrals: Seamus Spencer PA [Primary Care Provider, Medicine] Discharge Data Discharge Date/Time-TO BE ENTERED AT DEPARTURE: 03/13/25 15:43 HPI General Date/Time Provider Initiated Documentation: 03/13/25 14:21. HPI Narrative: 54 year-old female presents to ED today by POV/ambulating with a chief complaint of right wrist pain after a fall 10 days ago having pain in the extensor tendon of the thumb when she moves it with onset worsening over the past couple days. Quality described as soreness extending from the base of the thumb up the dorsal forearm, worse with movement, no radiation to erythema, inability to flex or extend the wrist, supinate or pronate, denies numbness or tingling. Severity is described as moderate. Palliating factors include nothing specific attempted beyond OTCs. Provoking factors include thumb extension. Events leading up to the incident/Associated Symptoms: Patient is right-hand dominant. Patient not anticoagulated. Related Data Home Medications ?Medication ?Instructions ?Recorded ?Confirmed baclofen 10 mg tablet 10 mg PO BID PRN 09/18/13 03/13/25 fluoxetine 20 mg capsule (Prozac) 40 mg PO HS 09/18/13 03/13/25 lamotrigine 150 mg tablet 150 mg PO DAILY 09/18/13 03/13/25 levothyroxine 25 mcg tablet 25 mcg PO DAILY 09/18/13 03/13/25 pravastatin 20 mg tablet 20 mg PO DAILY 09/18/13 03/13/25 levothyroxine 75 mcg capsule 75 mcg PO DAILY 10/02/22 03/13/25 omeprazole 20 mg tablet,delayed 20 mg PO DAILY 10/02/22 03/13/25 release zolpidem 5 mg tablet (Ambien) 6.25 mg PO QHS 10/02/22 03/13/25 doxycycline hyclate 100 mg capsule 100 mg PO BID #28 caps 02/08/24 03/13/25 hydroxyzine HCl 1 tab PO BID 03/13/25 03/13/25 Previous Rx's ?Medication ?Instructions ?Recorded doxycycline hyclate 100 mg capsule 100 mg PO BID #28 caps 02/08/24 Allergies Allergy/AdvReac Type Severity Reaction Status Date / Time duloxetine HCl (From Allergy Intermediate Psychosis Unverified 02/03/24 17:30 Cymbalta) ibuprofen Allergy Intermediate Anaphylaxsi Unverified 02/03/24 17:30 s NSAIDS (Non-Steroidal Allergy Intermediate Anaphylaxsi Unverified 02/03/24 17:30 Anti-Inflamma s pregabalin (From Lyrica) Allergy Intermediate Psychosis Unverified 02/03/24 17:30 tetanus and diphtheria Allergy Intermediate Swelling/Ed Unverified 02/03/24 17:30 toxoids (Tetanus&Diphtheria reynaldo Toxoid) codeine AdvReac Intermediate Nausea Unverified 02/03/24 17:30 walnut Allergy Intermediate Anaphylaxsi Uncoded 02/03/24 17:30 s General Stated Complaint: Orthopedic AMELIE: 4 Review of Systems All systems reviewed & are unremarkable except as noted in HPI and below Exam Narrative Exam Narrative: GENERAL APPEARANCE: Well-nourished, non-toxic, awake and alert, atraumatic, no acute distress. SKIN: Warm, pink, dry, intact, without rashes/lesions/ulcerations. HEAD: Normocephalic, atraumatic, normal hair distribution for gender/age. EYES: Normal conjunctiva, no exudates on lids/lashes. ENT: Nares patent, no circumoral cyanosis, no facial swelling NECK: Supple, trachea midline, painless cervical ROM. LUNGS/CHEST: Non-labored respirations, normal A/P diameter, symmetrical expansion, no chest wall deformity HEART (CV/PV): Regular rate, R radial pulse 2+, no peripheral edema, no JVD. ABDOMEN: Soft, non-distended, no guarding. MSK: Normal ROM, no swelling/deformity to bilateral UEs or LEs, moving all extremities without weakness, no cyanosis, spine midline without tenderness, normal curvature. R HAND: no anatomical snuffbox tenderness, pain in the distribution of the extensor tendons of the thumb worse with extension, suspect tendinitis NEURO: Mental Status AAOx4 - alert to person, place, time, events No facial droop, no forehead involvement. Motor: No focal weakness - strength 5/5 in bilateral UEs and LEs, proximal and distal, symmetric. Sensory: sensation intact to light touch globally. Gait normal: patient ambulated without ataxia into ED room. PSYCH: euthymic, cooperative, pleasant, appropriate speech Course Vital Signs Vital signs: Vital Signs Temperature 36.7 C 03/13/25 14:12 Pulse 76 03/13/25 14:12 Respiratory Rate 16 03/13/25 14:12 Blood Pressure 164/128 H 03/13/25 14:12 Pulse Oximetry 98 03/13/25 14:12 Temperature 36.7 C 03/13/25 14:12 Temperature Source Oral 03/13/25 14:12 Pulse 76 03/13/25 14:12 Respiratory Rate 16 03/13/25 14:12 Blood Pressure 164/128 H 03/13/25 14:12 Pulse Oximetry 98 03/13/25 14:12 Oxygen Delivery Method Room Air 03/13/25 14:12 Oxygen Flow Rate 0 03/13/25 14:12 Medical Decision Making This dictation utilizes [id number] dictation software and may contain unedited grammatical errors. 54 year-old female presents to ED today by POV/ambulating with a chief complaint of right wrist pain after a fall 10 days ago having pain in the extensor tendon of the thumb when she moves it with onset worsening over the past couple days. Quality described as soreness extending from the base of the thumb up the dorsal forearm, worse with movement, no radiation to erythema, inability to flex or extend the wrist, supinate or pronate, denies numbness or tingling. Severity is described as moderate. Palliating factors include nothing specific attempted beyond OTCs. Provoking factors include thumb extension. Events leading up to the incident/Associated Symptoms: Patient is right-hand dominant. Patients' medical history: Noncontributory. Family and social history: Noncontributory. Pertinent exam findings / vital signs include no anatomical snuffbox tenderness, pain in the distribution of the extensor tendons of the thumb worse with extension, suspect tendinitis. Differential / pathologies of concern include tendinitis, sprain/strain, fracture. Diagnostic studies of: - XR R wrist-shows no fracture. Interventions of: - Thumb spica splint for relief of possible de Quervain's tenosynovitis. ED Course/Assessment/Plan: 54-year-old female presents with left thumb extensor tendon pain after a fall 10 days ago, has not been significantly icing or immobilizing, recommend she perform RICE therapy and therapeutic dosing of Tylenol and ibuprofen, follow-up with orthopedics for any complications otherwise remain in the splint 24/7 for a week and then wear it at night to see if this improves her syndrome of tendinitis. Findings not consistent with fracture or neurovascular compromise, tenosynovitis. Disposition of thumb tendinitis. Patient verbalized understanding of the plan and return to ED criteria and engaged in shared decision making. Medical Records Medical records reviewed: Yes I reviewed the patient's medical records. Imaging Data Radiologic Study: Attestation: I personally reviewed and interpreted this imaging study as follows: Imaging: X-Ray Radiologist's impression: EXAM: XR WRIST RT COMPL NAVICULAR CLINICAL HISTORY: R wrist pain. TECHNIQUE: 2D digital imaging was performed. Four views. COMPARISON: No exams were available for comparison FINDINGS: BONES: No acute fracture is present. No bony destructive lesion is seen. JOINTS: The carpal bones are normally aligned. Mild degenerative changes at the 1st carpometacarpal SOFT TISSUE: Normal. IMPRESSION: No acute abnormality. PFSH All Active Problems (Updated 03/13/25 @ 15:29 by CONNIE Dorantes) Thumb tendonitis (Acute) Social History Smoking/Tobacco Use Status: Never Smoking risk assessment performed?: Yes Alcohol Intake: current Alcohol Intake frequency: holidays/special occasions only Drug use: Never Substance use type: does not use Housing: apartment Do you feel safe at home: Yes Do you feel safe in your relationship?: Yes
== END 2025-03-13 15:43 | disposition home or self-care (01) ==
PROVIDERS: Emergency Provider Physician Assistant; PCP Physician Assistant Medical
DX: M25.531 Pain in right wrist (principal); M77.8 Other enthesopathies, not elsewhere classified; W19.XXXA Unspecified fall, initial encounter
CPT/HCPCS: 99283 ×2; 29125; 73110

== ENCOUNTER 2025-06-16 16:22 | Outpatient (REF) | payer OTHER, MEDICARE, SELFPAY ==
[2025-06-16 19:56] LABS: Glucose Negative (Negative)
[2025-06-16 20:22] LABS: C & S Indicated? Yes; WBC >50 HPF (0-5)
== END 2025-06-16 16:23 | disposition home or self-care (01) ==
LOC: NCHCN 16:22
PROVIDERS: PCP Physician Assistant Medical; Visit Provider Family Medicine
DX: N39.0 Urinary tract infection, site not specified (principal)
CPT/HCPCS: 87077; 81003; 81015; 87086; 87186